=== PATIENT | female | born 1955 | race Caucasian/White ===

== ENCOUNTER → 2017-05-06 | Outpatient (CLI) | payer BC, OTHER ==
[~2017-05-06] VITALS: Ht 157.5 cm; Wt 94.3 kg
[~2017-05-06] MED LIST: ALEVE220 MG PO; CLARITIN10 M3 PO; GLUCOPHAGE XR500 MG PO; HYDROCHLOROTHIA25 M2 PO; HYDROCODONE-AP1 EAC6 PO; ILEVRO1.7 ML OPHTHALMIC; LISINOPRIL20 MG PO; METFORMIN HCL500 MG PO; UNICOMPLEX M TA1 TA1 PO; VICTOZA0.6 MG/0.1 SUBQ; VITAMIN B12-FO1 EAC1 PO; ZOCOR20 MG PO
[2017-05-06 07:37] VITALS: BP 148/71
[2017-05-06 07:43] LABS: HEMATOCRIT 36.7 % (37.0-47.0); HEMOGLOBIN 12.2 gm/dL (12.0-15.0); MCH 30.4 pg (26.0-34.0); MCHC 33.4 g/dL (28.0-37.0); RBC 4.03 mil/uL (4.20-5.00); RDW 14.1 % (10.5-14.5); WBC 6.1 thou/uL (4.0-11.0)
[2017-05-06 07:48] LABS: CALCIUM 9.5 mg/dL (8.5-10.1); CREATININE 0.6 mg/dL (0.6-1.0); POTASSIUM 3.6 mmol/L (3.5-5.1)
[2017-05-06 07:54] LABS: PROTIME 9.9 Seconds (9.3-11.4)
[2017-05-06 09:24] VITALS: BP 157/103
[2017-05-06 09:35] VITALS: BP 167/76
[2017-05-06 09:40] VITALS: BP 152/82
[2017-05-06 09:45] VITALS: BP 156/77
[2017-05-06 09:50] VITALS: BP 147/74
== END | disposition home or self-care (01) ==
LOC: CAT 06:58
PROVIDERS: Radiology Diagnostic Radiology
DX: M71.38 Other bursal cyst, other site (principal); I10 Essential (primary) hypertension; E78.5 Hyperlipidemia, unspecified; E11.9 Type 2 diabetes mellitus without complications; F32.89 Other specified depressive episodes; G43.909 Migraine, unspecified, not intractable, without status migrainosus; H40.9 Unspecified glaucoma; E66.09 Other obesity due to excess calories; Z85.828 Personal history of other malignant neoplasm of skin; Z79.899 Other long term (current) drug therapy; Z98.890 Other specified postprocedural states